=== PATIENT | female | born 1980 ===

== ENCOUNTER 2017-05-20 05:59 | Inpatient (IN) | payer OTHER ==
[~2017-05-20] VITALS: Ht 157.5 cm; Wt 93.0 kg
[2017-05-20] MEDS ORDERED: Sodium Citrate-Citric Acid 15 mL Solution ONE (06:19)
[2017-05-20] MEDS ORDERED: CeFAZolin 2 Gm/50 mL D5W Duplex Bag IV ONE (06:19)
[2017-05-20] MEDS ORDERED: Morphine PF 1 mg/mL 10 mL Inj ONE (06:22)
[2017-05-20] MEDS ORDERED: CeFAZolin Inj 2 GM in IV Premix 1 EACH IV ONE ×2 (06:30→23:00)
[2017-05-20] MEDS ORDERED: Sodium Citrate-Citric Acid 15 mL Solution PO SCH (06:30)
[2017-05-20] MEDS ORDERED: Atropine 0.4 mg/mL Inj IV PRN (06:45)
[2017-05-20] MEDS ORDERED: HYDROmorphone 1 mg/mL Inj IVPUSH PRN (06:45)
[2017-05-20] MEDS ORDERED: Dexamethasone 4 mg/mL Inj IVPUSH PRN (06:45)
[2017-05-20] MEDS ORDERED: Morphine PF 1 mg/mL 10 mL Inj EPIDURAL ONE (06:45)
[2017-05-20] MEDS ORDERED: Phenylephrine/NS-PF 100 mCg/mL 5 mL Syringe IVPUSH PRN (06:45)
[2017-05-20] MEDS ORDERED: MetoCLOpramide 5 mg/mL 2 mL Inj IVPUSH PRN (06:45)
[2017-05-20] MEDS ORDERED: Ondansetron 2 mg/mL 2 mL Inj IVPUSH PRN (06:45)
[2017-05-20] MEDS ORDERED: EPHEDrine Sulfate 50 mg/mL Inj IVPUSH PRN (06:45)
[2017-05-20] MEDS ORDERED: fentaNYL-PF 50 mCg/mL 2 mL Inj IVPUSH PRN (06:45)
--- NOTE | 2017-05-20 06:47 | PCM.HPANE ---
Patient Data Surgeon Admitting Provider:Russel Jain MD Attending Provider:Russel Jain MD Primary Care Physician:Russel Jain MD Other Provider:Dereck Johnson Anesthesia Reason for Visit Term Twin TERM TWIN Ht/WT & BMI Body Mass Index Allergies Coded Allergies: No Known Allergies (Unverified , 12/05/15) Past Anesthesia History Anesthesia History: Denies:: Abnormal Airway, Anesthesia Reactions, Difficult Intubation, Fam Anesthesia Reaction, Fam Malignant Hypertherm, Malignant Hyperthermia Diabetes History Hx Diabetes?: No Medications Hypertension Medication: No Home Meds Incl Beta Nain: No No Active Prescriptions or Reported Meds History History of ENT Problems?: No HEENT History: Positive for:: Abnormal Airway Denture Type: None Teeth Condition: Within Normal Limits Hx of Heart Problems?: No Cardiovascular History: Denies:: AICD Abdominal Aortic Aneurism Atrial Fibrillation Cardiac Surgery Chest Pain Congestive Heart Failure Coronary Artery Disease Edema Heart Murmur Hypertension Irregular Heartbeat Pacemaker Peripheral Vascular Rheumatic Fever Thrombophlebitis Valvular Heart Disease Hx of Respiratory Problem?: No Respiratory History: Denies:: Asthma COPD Chest Surgery Cough Dyspnea Emphysema Hemoptysis Oxygen Administration Pneumonia Pulmonary Embolism Tuberculosis Use of C-PAP Machine Use of Inhalers / NEBS Hx Neurologic Problems?: No Hx of GI Problems?: Yes Gastrointestinal History: Positive for:: Heartburn Hx of Problems?: No Female Hx: Positive for:: Currently (term, ruptured, twins, 7 cm) Hx Musculoskeletal Problems?: No Hx Surgeries?: Yes Smoking Status: Never Smoker Have You Smoked inLast 12 mo: No Stop/Bang Treated for Sleep Apnea?: No Do You Have a CPAP Machine?: No JOANNA Risk Assessment: Low Risk, <3 Yes Risk Assessment Category Category 1A: Patient has history of documented sleep apnea, and HAS NOT received any narcotic, sedative or anesthesia administration during this stay. Category 1B: Patient has history of documented sleep apnea, and HAS received any narcotic , sedative or anesthesia administration during this stay Category 2: Patient has SUSPECTED Obstructive Sleep Apnea, and HAS received any narcotic , sedative or anesthesia administration during this stay. Category 3: Patient has SUSPECTED Obstructive Sleep Apnea and HAS NOT received narcotic, sedative or anesthesia administration during this stay. Category 4: Outpatient in Procedural Areas with known sleep apnea or who screen positive for High Risk via the STOP/BANG questionnaire. Exam Exam General Appearance: Oriented X3 HEENT/AIRWAY: MP 2 Lungs: Normal Air Movement Heart: Regular Rate/Rhythm Plan Impression Patient chart reviewed, patient interviewed and anesthestic plan with risks, benefits, and alternatives discussed, and informed consent obtained. ASA Physical Status: ASA2 Plus Emergency Anesthetic Plan: SAB Bene/Risks/Altern/Consents: Yes HP Complete Prior to Induction: Yes Dillon Contreras MD May 20, 2017 06:47
--- NOTE | 2017-05-20 07:56 | PCM.ANEP1 ---
Post Anesthesia PACU Phase 1 Assessment Vital Signs BP: 113/67 HR: 60 SpO2: 99% on RA Anesthetic Administered: SAB Level of Alertness: Awake, talking CHESTER's with Equal Strength: No (residual SAB) Pain: No Nausea or Vomiting: No CV Function & Hydration Stable: Yes Airway Device: None Oxygen Delivery: Room Air Lungs: Normal Air Movement Dermatome Level: T4 (Nipple Line) PACU Phase 2 Assessment Complications: No Follow up Care: N/A Patient Instructions Provided: N/A Lawrence Lubin MD May 20, 2017 07:56
[2017-05-20 08:28] LABS: Mean Corpuscular Hemoglobin 28.1 pg (27.0-35.0); Mean Corpuscular Volume 81.7 fL (81-100)
[2017-05-20] MEDS ORDERED: Carboprost 250 mCg/mL Inj IM PRN (08:30)
[2017-05-20] MEDS ORDERED: Sodium Chloride LOK Flush 10 mL Syringe IVFLUSH PRN (08:30)
[2017-05-20] MEDS ORDERED: hydrOXYzine Pamoate 25 mg Capsule PO PRN (08:30)
[2017-05-20] MEDS ORDERED: Oxytocin 30 Units/500 mL LR 30 UNITS in IV Premix 1 EACH IV PRN (08:30)
[2017-05-20] MEDS ORDERED: Influenza (Adult) Vaccine 0.5 mL Syringe IM ONE (08:30)
[2017-05-20] MEDS ORDERED: Methylergonovine 0.2 mg/mL Inj IM PRN (08:30)
[2017-05-20] MEDS ORDERED: CeFAZolin Inj 2 GM in Dextrose 5% 50 ML IV SCH (08:30)
[2017-05-20] MEDS ORDERED: Hemorrhage Kit, Post Partum XX ONE (08:30)
[2017-05-20] MEDS ORDERED: TdaP Vaccine 0.5 mL Inj IM ONE (08:30)
[2017-05-20] MEDS ORDERED: LANOlin HPA 7 Gm Ointment TOPICAL PRN (08:30)
[2017-05-20] MEDS ORDERED: Measles-Mumps-Rubella Vaccine 0.5 mL Inj SUBQ ONE (08:30)
[2017-05-20] MEDS ORDERED: Oxytocin 10 Unit/mL Inj ONE (09:00)
[2017-05-20] MEDS: Lactated Ringer's 1,000 ML IV SCH ×2 (09:50→16:32)
[2017-05-20] MEDS: Oxytocin 10 Unit/mL Inj IM PRN (09:51)
[2017-05-20] MEDS: Acetaminophen IV 1,000 MG in IV Premix 1 EACH IV PRN ×3 (10:04→22:45)
[2017-05-21 07:15] LABS: Mean Corpuscular Hemoglobin 27.7 pg (27.0-35.0); Mean Corpuscular Volume 83.3 fL (81-100)
[2017-05-21] MEDS: oxyCODONE-Acetamin 5-325 mg Tablet PO PRN ×3 (11:08→21:21)
--- NOTE | 2017-05-21 11:54 | OP ---
[address] [address] OPERATIVE REPORT PATIENT: LOLLY ARRIOLA : 1980 MR#: [id number] ADMIT: 05/20/2017 JOB ID: [id number] DATE OF SURGERY: 05/20/2017 SURGEON: Russel Jain MD METHODS ENGINEER: Sivakumar Flores ANESTHESIA: Spinal. PREOPERATIVE DIAGNOSIS(ES): 1. A 36-1/2 week in , dichorionic diamniotic. 2. Spontaneous rupture of membranes in active labor. POSTOPERATIVE DIAGNOSIS(ES): 1. A 36-1/2 week in , dichorionic diamniotic. 2. Spontaneous rupture of membranes in active labor. PROCEDURES PERFORMED: Repeat low transverse section. INDICATIONS FOR SURGERY: This patient was followed prenatally at [facility], see record for details. She was found to have dichorionic diamniotic twin gestation early on, and she did have some cervical dilatation yet made it to 36-1/2 weeks of gestation before spontaneous rupture of membranes and onset of labor. She previously has undergone a section and then vaginal after section trial. We have discussed in great detail for many hours during her options including trial of labor versus repeat section, with pros and cons, benefits and risks. Ultimately, we negotiated repeat section which was planned for 38 weeks of gestation, although with plan for unscheduled section and in fact rupture of membranes with labor onset developed early as has currently occurred. The patient thus shortly after admission has been prepared for repeat section as per plan developed during , understanding risks of surgery to include bleeding, infection, injury to the urinary tract and bowel, anesthetic risks, wound problems, et cetera. She has also understood that the babies are early and may have issues with breathing, keeping warm, feeding, jaundice, et cetera. All questions have been answered. No guarantees have been stated or implied, and patient has signed informed consent for surgery. FINDINGS AT SURGERY: Twin A was in vertex presentation and amniotic fluid was clear. Twin B was in transverse lie presentation, although converted to vertex presentation with gentle manipulation for delivery. Amniotic fluid was also clear in twin B. Fallopian tubes and ovaries were normal. There was no uterine wall concern except for significant hypervascularity as well as bladder adherence to lower uterine segment. At procedure's close uterus had contracted well and overall bleeding has been reasonable. Urine was clear. Babies were active, crying, and vigorous managed per veneer stock layer. Certainly it is anticipated that mother and baby will do well during the postoperative/ timeframe. PROCEDURE IN DETAIL: The patient was placed supine position on the operating table after activation of spinal anesthesia. She was repositioned in a left lateral tilt position and prepped and draped in the usual sterile fashion. Appropriate time-out was taken. After was brought into the room, a Pfannenstiel incision was made caudal to the prior surgical scar, 2 fingerbreadths above the symphysis pubis. This incision was carried through skin, subcutaneous tissues and fascial layer. Cautery was applied where needed. Fascial layer was then from the underlying rectus muscles using blunt and sharp dissection plus cautery. Rectus muscles were then in the midline and the peritoneal cavity was carefully entered. Significant adhesions and varicosities/hypervascularity were noted involving the bladder to the lower uterine segment. Incision was made in the vesicouterine peritoneal fold. A bladder flap was developed with great care to avoid as many varicosities as possible. Uterine incision was then made through the lower uterine segment down to the amniotic sac of twin A, which was then ruptured. Clear fluid was recovered. Head was then easily delivered followed by the shoulders, body and extremities. Umbilical cord was clamped and cut. The infant was handed to the pediatric team for management. Position of twin B was then palpated through the amniotic sac, as well as abdominally. Transverse lie presentation was noted, with head on the right, back up. Amniotic sac was ruptured and with external manipulation primarily and minimal internal manipulation the head was converted to vertex and delivered followed by the body and extremities. Baby was active and crying and vigorous on the operative field. Umbilical cord was clamped and cut. The was handed to the pediatric team for management. Cord blood was then obtained for routine studies for twin A and then same procedure for twin B. Placental mass was then massaged from the uterus, intact with membranes and uterus was exteriorized. Uterine cavity was gauze curettaged and the uterus massaged and intravenous Pitocin infusion provided. Uterine incision was then closed in a running, locking manner using #1 chromic suture. Hemostasis was noted to be complete. There was hypervascularity dealt with the suture incision line, effective. There was hesitation to place an additional suture layer due to very significant hypervascularity below the incision as well as due to the close nature of the bladder due to adhesions and thus a second layer was not undertaken as it should be prudent. There was thickness to the lower uterine segment wall. With hemostasis complete, no internal bleeding occurring. Thus, uterus staying well contracted and bladder area untouched and with urine clear. Ovaries and tubes were inspected. Cul-de-sac area was irrigated and suctioned of blood, clots, and fluid. Uterus was then returned to the abdominal cavity. Gutter areas were cleared of blood, clots, and fluid. Appropriate count was then taken and all instruments and sponges and needles were accounted for. Rectus muscles were then drawn together across the midline using interrupted stitches of #1 chromic suture and subfascial plane was inspected and light cautery applied where needed. Fascial layer was then closed in a running manner using #1 PDS, with great care given to bury the knot on each end. Subcutaneous tissues were irrigated and cautery applied where needed. There was no bleeding and there was less than 2 cm in thickness and decision was made to proceed with jerry, which were placed easily. Hemostasis was noted to be complete and uterus was expressed of blood and clots and pressure dressing was applied. All procedures were thus complete. Patient was taken to her room for recovery. ESTIMATED BLOOD LOSS: 450 cc. COMPLICATIONS: None. PROGNOSIS: Good for surgical recovery.
--- NOTE | 2017-05-21 15:33 | PROG NOTE ---
[address] [address] PROGRESS NOTE PATIENT: LOLLY ARRIOLA : 1980 MR#: [id number] ADMIT: 05/20/2017 JOB ID: [id number] DATE: 05/21/2017 POSTOPERATIVE DAY ONE/ DAY ONE NOTE: The patient underwent repeat section for delivery of twins at 36-1/2 weeks along following rupture of membranes and labor onset yesterday morning. During the postoperative/ timeframe, patient is doing well, with stable vitals, afebrile, with reasonable bleeding and pain management, without leg pain or shortness of breath, and handling babies well. She is ambulating and voiding. Babies remain in the nursery, although she is nursing and feeding them regularly in a wheelchair. PLAN: Continue postoperative/ management. Anticipate discharge to home tomorrow, i.e. on the second postoperative/ day. However, if twins need to stay a little longer, as may well be the case, then patient may stay as a border mom. Dressing will be removed today after a shower, and jerry will be removed on the day of discharge, with benzoin and half-inch Steri-Strip application.
--- NOTE | 2017-05-22 01:02 | HP ---
[address] [address] HISTORY AND PHYSICAL PATIENT: LOLLY ARRIOLA : 1980 MR#: [id number] ADMIT: 05/20/2017 JOB ID: [id number] DATE: 05/20/2017 [facility] NOTE: The patient is a 36-year-old G-6, P-2 AB 3 woman followed prenatally at [facility]; see record for details. Note that due date is June 13, 2017, placing the patient at 36 and 4/7 weeks of gestation on admission. She has twins, dichorionic and diamniotic, both female. There has been appropriate and concordant growth. Note advanced maternal age, having declined genetic screening. Note level 2 sonogram negative of each twin. The patient has specifically requested a repeat section for delivery, having had a and subsequent vaginal after . We have discussed pros and cons along the way, benefits and risks, spending probably a few hours in these discussions during . Ultimately, the decision was made between us for repeat , having been scheduled at 38 weeks all along, although the patient came in with ruptured membranes and in labor. Thus, to proceed with repeat Unscheduled. All questions have been answered. No guarantees have been stated or implied. The patient is cleared and she understood the risks of surgery to include bleeding, infection, injury to the urinary tract and bowel, anesthetic risks, wound problems, etc. The patient was thus admitted to [facility] at 36 and 4/7 weeks of gestation on May 20, 2017 with rupture of membranes and labor for repeat section, Unscheduled. PHYSICAL EXAMINATION ON ADMISSION: Height is 62 inches, last weight in the office was 199 pounds. Last blood pressure in the office was 118/70. Neck: No thyromegaly. Lungs: Clear to auscultation and percussion. Heart: Regular in rate and rhythm. Abdomen: Last fundal height in the office was 42 cm. Two distinct heartbeats. Vertex presentation of twin A and twin B's presentation has been variable. Pelvic examination: Initial cervical exam: Dilatation at 7 cm. DIAGNOSTIC DATA: See admission lab work. IMPRESSION: 1. at 36 and 4/7 weeks gestation. 2. Twin gestation, dichorionic and diamniotic. 3. Spontaneous rupture of membranes plus labor. 4. Advanced maternal age, having declined genetic screening, although level 2 sonogram negative. 5. Reproductive history: Elective x3, then caesarean section, then vaginal after caesarean and now the current with twins. 6. The patient has requested repeat section as delivery modality in the setting of twins and prior section after full discussions multiple times in the office. 7. Reversible contraception planned for , although most likely the patient will not have another . 8. History of depression. 9. Abnormal one-hour glucose challenge test with a value at 137. Note one-hour value on three-hour glucose tolerance test elevated at 198, although other values normal. 10. Rh positive. 11. Rubella immune. 12. History of smoking (stopped in 2007). 13. No known drug allergies. 14. Family history of diabetes (father), hypertension (grandmother) and twins (father's cousin). PLAN: This patient was admitted to [facility] on May 20, 2017 in the morning with rupture of membranes and active labor with twins at 36 and 4/7 weeks gestation. has been planned as delivery modality and, thus, the decision was made to accomplish repeat a little bit early as in active labor and ruptured. Not to do tubal ligation, however, per patient. MTDD
[2017-05-22] MEDS: oxyCODONE-Acetamin 5-325 mg Tablet PO PRN ×3 (03:33→12:50)
--- NOTE | 2017-05-22 11:35 | PCM.DIOB ---
Obstetrical Disch Instruction Dates of Hospitalization Date of Hospital Admission May 20, 2017 at 05:59 Providers Admitting Physician: Russel Jain MD Primary Care Physician: Russel Jain MD Attending Physician: Rusesl Jain MD Discharge Diagnosis Problems: (1) Status: Acute ICD Code: Z33.1 (2) Twins Status: Acute ICD Code: Z38.5 Diet Discharge Diet: No restrictions Activity Discharge Activity-General: Pelvic Rest for 6 weeks, No lifting >10 pounds for 4-6 weeks Dressing and Incisional Care Dressing Care: Allow Steri Stripes to fall off Hygiene: May shower, DO NOT soak incision under water, NO bathtub, hot tub or whirlpool Follow Up Plan Follow-up appointment: Weeks (Call Office this week to schedule / postoperative appointments in 2 & 6 weeks.) Call your provider for: Fever or Chills, Shortness of breath, Heavy vaginal bleeding, Red painful breasts Russel Jain MD May 22, 2017 11:35
[2017-05-22] MEDS ORDERED: IBUP-1827 PO (11:38)
[2017-05-22] MEDS ORDERED: OXYC1TAB24 PO (11:38)
[2017-05-22] MEDS ORDERED: DOCU-41 PO (11:38)
[2017-05-22 14:05] VITALS: BP 130/88; PULSE 79; RESP 18
--- NOTE | 2017-05-23 07:36 | DIS ---
[address] [address] DISCHARGE SUMMARY PATIENT: LOLLY ARRIOLA : 1980 MR#: [id number] ADMIT: 05/20/2017 JOB ID: [id number] DIS: 05/22/2017 DATE OF DISCHARGE: 05/22/2017 DISCHARGE DIAGNOSES: 1. A 36-4/7 weeks , delivered. 2. Twin gestation. 3. Spontaneous rupture of membranes. 4. Active labor. 5. Positive streptococcal test. 6. Prior section, now status post repeat section. PROCEDURES PERFORMED DURING HOSPITALIZATION: 1. Repeat low transverse section. 2. Spinal anesthesia. HOSPITAL COURSE: Patient admitted to [facility] with ruptured membranes and active labor at 36-1/2 weeks along with twin gestation. Repeat low transverse section was accomplished with the patient under spinal anesthesia. During the postoperative/ timeframe patient did well with stable vitals, afebrile with reasonable bleeding and pain management, voiding and ambulating without leg pain or shortness of breath, without incisional problem and handling babies well. Note that patient was ready for discharge on the second postop/ day, babies were still in the nursery, doing okay although with some borderline issues. Marquis were removed and benzoin and 0.5-inch Steri-Strips were placed. DISCHARGE PROGRAM: Patient will call p.r.n. heavy bleeding, high fever, or other problem. Otherwise, she will follow up at two and six weeks for /postoperative checkups. She will observe pelvic rest and not do any heavy lifting for six weeks. DISCHARGE MEDICATIONS: Include: 1. Percocet. 2. Ibuprofen. 3. Colace, prescriptions written. 4. Patient will also use vitamin daily while nursing.
--- NOTE | 2017-05-26 11:57 | PATH ---
SURGICAL PATHOLOGY Attending Physician:Russel Jain M.D CASE STATUS: Signed Out PATIENT NAME: LOLLY ARRIOLA PID: [id number] : 1980 DATE COLLECTED:05/21/2017 00:00 SPECIMEN: Placenta twin, sides not specified CLINICAL HISTORY: 36 WEEK TWIN , CLAMP ON BABY A 1). PLACENTAL MASS FINAL DIAGNOSIS: Twin Placenta, Delivery: - Fused twin placenta, weighing 691 grams. - Diamnionic-dichorionic dividing membrane. - Twin A (clamped cord) -Three-vessel umbilical cord with no evidence of inflammation. - membranes with no evidence of inflammation. - Villous morphology appropriate for gestational age. - Twin B (non-clamped cord) - Three-vessel umbilical cord with no evidence of inflammation. - membranes with no evidence of inflammation. - Villous morphology appropriate for gestational age with a focus of infarct. ICD10: O30.43 GROSS DESCRIPTION: The specimen is received in formalin, labeled with the patient's name, and consists of an intact placenta with fused disc (691 g, 23.2 x 22.3 x 2.4 cm), membranes, dividing membrane and 2 umbilical cords (Baby A: length-35.2 cm, diameter-1.5 x 0.8 cm; Baby B: length-22.2 cm, diameter-1.2 x 0.9 cm). A white plastic surgical clamp on one of the umbilical cords designates Baby A. Baby A membranes are ruptured 6.0 cm from the free edge of the placenta. The umbilical cord is attached 3.5 cm from the edge of the placenta and contains 3 vessels. Baby B membranes are ruptured 13.5 cm from the free edge of the placenta. The umbilical cord is attached 3.2 cm from the edge of the placenta and contains 3 vessels. The membranes and dividing membrane are semitranslucent. The surface is smooth and shiny with raised dilated vessels. No evidence of meconium is identified. The maternal surface is dark maroon with normal cotyledon formation. Baby B side contains multiple lacerations. The placental body is spongy and appears to be one complete disc. Baby B side contains multiple rodriguez-orange fibrous areas (0.5 x 0.5 x 0.2 cm-1.1 x 0.8 x 0.5 cm). No nodules, masses, lesions, or hematomas are identified. Section code: Baby A-(A) edge of placenta with membranes; (B) umbilical cord; (C-F) placenta, 4 full-thickness sections; (G) dividing membrane with placenta; Baby B-(H) edge of placenta with membranes; (I) umbilical cord; (J-K, L, M) placenta, 3 full thickness sections. Note: This case was reviewed by Dr. Nicky Ayers before the specimen was sliced. 05/23/17 ICD-9 CODES: CPT CODES: 1: 82999 Electronically Signed Out Paulo Velasquez MD [facility] [address], [place] [address] Technical component performed at [facility], [facility] [address], [place], [address]
== END 2017-05-22 15:00 | disposition home or self-care (01) | DRG 765 ==
LOC: FBC 05:59 → EDSTATUS 05-30 17:00
PROVIDERS: ADMIT Obstetrics & Gynecology; ATTEND Obstetrics & Gynecology
PROC: 10D00Z1 Extraction of Products of Conception, Low, Open Approach (ICD-10-PCS; principal; 2017-05-20 06:24)
DX: O82 Encounter for cesarean delivery without indication (principal); O30.043 Twin pregnancy, dichorionic/diamniotic, third trimester; Z37.2 Twins, both liveborn; Z3A.36 36 weeks gestation of pregnancy; O34.211 Maternal care for low transverse scar from previous cesarean delivery